=== PATIENT | female | born 1930 | race Caucasian/White ===

== ENCOUNTER 2017-02-13 11:12 | Outpatient (CLI) | payer MEDICARE ==
--- NOTE | 2017-02-13 15:20 | MMO ---
BILATERAL SCREENING MAMMOGRAMS: Comparison is made to the prior exams of 2014, 2015, and 2016. Interpreted with computer-aided detection. There is a heterogeneously dense glandular pattern. Scattered benign-appearing calcifications again noted in both breasts. No evidence of mass or distortion. No interval change seen. Recommend 1-y ear followup. IMPRESSION: BIRADS 2: Benign Finding(s) Routine annual screening mammography (for women over age 40) POS: [facility]
== END 2017-02-13 11:13 | disposition home or self-care (01) ==
LOC: MAMMO 11:12
PROVIDERS: ATTEND Internal Medicine
DX: Z12.31 Encounter for screening mammogram for malignant neoplasm of breast (principal); R92.8 Other abnormal and inconclusive findings on diagnostic imaging of breast
CPT/HCPCS: 77067; G0202

== ENCOUNTER 2017-09-15 01:53 | Observation (INO) | payer MEDICARE ==
[2017-09-15] MEDS ORDERED: Aspirin 81 mg Enteric Coated Tablet ONE (02:28)
[2017-09-15 02:51] LABS: Band 4 % (5-11); Eosinophils 1 % (0-10); Hemoglobin 13.9 g/dL (12.0-16.0); Lymphocytes 27 % (21-51); MDiff Complete? YES; Mean Corpuscular HGB CONC 33.9 g/dL (32.0-36.0); Mean Corpuscular Volume 91.7 fl (81.0-99.0); Mean Platelet Volume 7.7 fL (7.4-10.4); Monocytes 5 % (0-10); Neutrophil 63 % (42-75); PLT Morphology Comment Appears Adequate; Platelet Count 127 thou/uL (130-400); RBC Distribution Width 11.9 % (11.5-14.5); Red Blood Cell (RBC) Count 4.49 mill/uL (4.20-5.40)
[2017-09-15 02:55] LABS: ALT (SGPT) 25 U/L (8-55); AST (SGOT) 29 U/L (5-34); Albumin 4.1 g/dL (3.4-4.8); Alkaline Phosphatase 60 U/L (40-150); Anion Gap 12 mmol/L (10-20); BUN (Urea Nitrogen) 15 mg/dL (9.8-20.1); Bilirubin, Total 0.6 mg/dL (0.2-1.2); CK (CPK) 59 U/L (29-168); Calc. Creatinine Clearance 0 mL/min (70-130); Calcium 9.9 mg/dL (7.8-10.44); Carbon Dioxide 26 mmol/L (23-31); Chloride 101 mmol/L (98-107); Estimated GFR-MDRD 51; Globulin 2.6 g/dL (2.4-3.5); Glucose 139 mg/dL (83-110); Potassium 3.6 mmol/L (3.5-5.1); Protein, Total 6.7 g/dL (6.0-8.3); Sodium 135 mmol/L (136-145)
[2017-09-15 02:59] LABS: CKMB 1.2 ng/mL (0-6.6); Troponin I Less than 0.010 ng/mL (< 0.028)
[2017-09-15] MEDS ORDERED: HYDROcodone/Acetaminophen 5/325 mg Tablet PO PRN (03:54)
[2017-09-15] MEDS ORDERED: Mag-Al 1200 mg/1200 mg/30 ML UDCUP PO PRN (03:54)
[2017-09-15] MEDS ORDERED: Loperamide HCl 2 MG CAP PO PRN (03:54)
[2017-09-15] MEDS ORDERED: Acetaminophen 325 MG TAB PO PRN (03:54)
[2017-09-15] MEDS ORDERED: Milk Of Magnesia 30 ML UDCUP PO PRN (03:54)
[2017-09-15] MEDS ORDERED: Nitroglycerin 0.4 MG TAB (25 Tab Bottle) PO PRN (03:54)
[2017-09-15] MEDS ORDERED: Polyethylene Glycol OPTH DROP 15 ML BOT EA EYE PRN (03:54)
[2017-09-15] MEDS ORDERED: Zolpidem Tartrate 5 MG TAB PO PRN (03:54)
[2017-09-15] MEDS ORDERED: Ondansetron HCl/PF 4 MG/2 ML Vial IVP PRN (03:54)
[2017-09-15] MEDS ORDERED: Ondansetron ODT 4 MG TAB PO PRN (03:54)
[2017-09-15] MEDS ORDERED: Senokot 8.6 MG TAB PO PRN (03:54)
[2017-09-15 04:14] LABS: Bilirubin Negative (Negative); Blood, Urine Trace (Negative); Clarity CLEAR (Clear); Glucose, Urine (Dipstick) Negative (Negative); Leukocyte Negative (Negative); Nitrite Negative (Negative); Protein, Urine (Dipstick) Negative (Neg-Trace); Specific Gravity, Urine 1.006 (1.002-1.036); Urobilinogen 0.2 mg/dL (0.2-1.0); pH, Urine 7.5 (5.0-9.0)
[2017-09-15 04:17] LABS: Bacteria/HPF None Seen HPF (None Seen); Hyaline Casts/LPF 0-3 HYALINE CAST LPF (0-3 Hyaline); RBC/HPF 0-3 HPF (0-3); Squamous Epithelial None Seen HPF (0-3); WBC/HPF None Seen HPF (0-3)
[2017-09-15 04:33] VITALS: BMI 22.1
--- NOTE | 2017-09-15 04:53 | HP ---
PRIMARY CARE PHYSICIAN: Dr. Afshin Clements. REASON FOR ADMISSION: Chest pain, transient atrial fibrillation, acute gastroenteritis and elevated BNP. HISTORY OF PRESENT ILLNESS: An 87-year-old female who has history of hypertension, dyslipidemia, who presented to emergency room with complaint of chest tightness. The patient reports that this mornin g she was having several liquidy diarrhea. She denies any pus or blood. She denies any associated n ausea or vomiting. She denies any abdominal cramps. She denies any fever or chills. She is not zaid e whether she ate anything unusual night before diarrhea started. The patient was exhausted during d aytime. Her last diarrhea was just before coming to the emergency room. Late evening, the patient s tarted having chest tightness, which was on and off, without any radiation, 5/10 in intensity, withou t any association of nausea, vomiting or diaphoresis. She denies any associated palpitation, dizzine ss. She denies any orthopnea, PND or leg swelling. She denies any calf tenderness. In the emergenc y room, the patient had transient atrial fibrillation, which was spontaneously converted without doin g anything. The patient had routine blood test in the emergency room, which showed elevated BNP, but her cardiac enzymes are negative. This patient and patient's son who is present at bedside denies a ny previous cardiac history and denies any cardiology workup. Today, her routine blood tests showed elevated BNP. The patient does not have any previous history o f congestive heart failure. She denies any UTI symptoms. She denies any antibiotic exposure. REVIEW OF SYSTEMS: The following complete review of systems was negative, unless otherwise mentioned in the HPI or below: Constitutional: Weight loss or gain, ability to conduct usual activities. Sk in: Rash, itching. Eyes: Double vision, pain. ENT/Mouth: Nose bleeding, neck stiffness, pain, te nderness. Cardiovascular: Palpitations, dyspnea on exertion, orthopnea. Respiratory: Shortness of breath, wheezing, cough, hemoptysis, fever or night sweats. Gastrointestinal: Poor appetite, abdom inal pain, heartburn, nausea, vomiting, constipation, or diarrhea. Genitourinary: Urgency, frequenc y, dysuria, nocturia. Musculoskeletal: Pain, swelling. Neurologic/Psychiatric: Anxiety, depressio n. Allergy/Immunologic: Skin rash, bleeding tendency. Please see my HPI for pertinent positive and negative. All other review of systems reviewed and negative except as mentioned in the HPI. ALLERGIES: IODINE. CURRENT HOME MEDICATIONS: Toprol-XL 100 mg p.o. daily, amlodipine 5 mg p.o. daily, Lasix 40 mg p.o. daily, Premarin 0.625 mg p.o. daily, Lipitor 20 mg p.o. daily, calcium with vitamin D 1 tablet p.o. d aily, aspirin 81 mg daily, Systane eyedrops at bedtime, Aricept 5 mg p.o. daily, Biotin 5 mg p.o. natalie ly, ibuprofen as needed basis. PAST MEDICAL HISTORY: Hypertension, dyslipidemia, Alzheimer's dementia, osteoarthritis. PAST SURGICAL HISTORY: Right rotator cuff surgery, hysterectomy. PAST PSYCHIATRIC HISTORY: Reviewed and negative. SOCIAL HISTORY: The patient is . She lives alone. She does not have any tobacco, alcohol or illicit drug abuse history. FAMILY HISTORY: No strong family history of premature coronary artery disease, stroke or cancer. EMERGENCY ROOM COURSE: The patient is given aspirin 243 mg, IV fluid 500 mL. PHYSICAL EXAMINATION: VITAL SIGNS: On arrival, blood pressure 130/89, pulse 124 irregular, respiratory rate 18, temperatur e 97.5, saturation 99% on room air, weight 72.5 kilograms. GENERAL: The patient is currently alert, awake, in no acute distress. HEAD: Normocephalic, atraumatic. EYES: Pupils are round and reactive to light. Extraocular muscle intact. ENT: Oropharynx within normal limits. Moist mucous membranes. No oral lesion, no pharyngeal erythe ma, no exudate. NECK: Supple, no thyromegaly, no carotid bruit, no jugular venous distention. LUNGS: Clear to auscultation without any rhonchi or rales. CARDIAC: S1, S2 regular without any significant murmur. ABDOMEN: Soft, bowel sounds present, nontender, nondistended. No organomegaly, no mass, no suprapub ic tenderness. BACK: Unremarkable, no CVA tenderness. EXTREMITIES: Upper extremities: Passive movement of all joints are normal. Lower extremities: No edema. Good peripheral pulsation. SKIN: No skin rash. HEMATOLOGICAL SYSTEM: No lymphadenopathy. PSYCHIATRIC: Normal affect. SIGNIFICANT LABORATORY DATA: EKG showing sinus tachycardia, first degree AV block, ST-T changes. CBC: WBC 3.0, hemoglobin 13.9, platelet 127. CK 59. BMP: Sodium 135, potassium 3.6, chloride 101, carbon dioxide 26, anion gap 12, BUN 15, creatinine 1.03, glucose 139, calcium 9.9. LFT: Protein 6.7, albumin 4.1, AST 29, ALT 25, CK-MB 1.2, troponin I 0.010. BNP 599. Chest x-ray based on my review, no acute cardiopulmonary process. ASSESSMENT AND PLAN: IMPRESSION: 1. Acute diarrhea, suspecting acute viral gastroenteritis. We will rule out infectious etiology wit h stool Clostridium difficile, ova and parasite, Campylobacter antigen, and symptomatic treatment. 2. Chest tightness, rule out acute coronary syndrome. We will do serial cardiac enzymes x3. We amrita l perform pharmacological stress test. We will check lipid profile for risk stratification. 3. Sinus tachycardia/transient atrial fibrillation, converted to sinus rhythm. We will check TSH. We will monitor on telemetry floor. We will continue Toprol-XL 100 mg p.o. daily. 4. Elevated BNP. We will do echocardiography to assess ejection fraction and other structural abnor mality to rule out congestive heart failure. 5. Hypertension. If blood pressure permits, we will continue amlodipine 5 mg p.o. daily, Lasix 40 m g p.o. daily, Toprol-XL 100 mg p.o. daily. 6. Alzheimer's dementia. Continue Aricept 5 mg p.o. daily. 7. Dyslipidemia. Continue Lipitor 20 mg p.o. at bedtime and check lipid profile tomorrow morning. 8. Deep venous thrombosis prophylaxis. Lovenox 40 mg subcutaneously daily. 9. Gastrointestinal prophylaxis, Pepcid 20 mg p.o. b.i.d. 10. Code status: The patient is FULL CODE. The patient's son Mihir is surrogate decision maker. Disposition plan based on above-mentioned investigation result. We will observe her 24 hours and we will consider discharging her tomorrow morning.
[2017-09-15 05:24] LABS: Troponin I 0.046 ng/mL (< 0.028)
[2017-09-15] MEDS ORDERED: Furosemide 40 MG TAB PO SCH (07:30)
[2017-09-15] MEDS: Amlodipine 5 MG TAB PO SCH ×2 (08:13→17:23)
[2017-09-15] MEDS: Aspirin 325 MG TAB PO SCH ×2 (08:13→17:23)
[2017-09-15] MEDS: Calcium Carbonate + Vit D 1 TAB PO SCH (08:13)
[2017-09-15] MEDS: Famotidine 20 MG TAB PO SCH (08:14)
[2017-09-15] MEDS: Enoxaparin Sodium 40 MG/0.4 ML SYRINGE SC SCH (08:14)
[2017-09-15 08:55] LABS: Troponin I 0.014 ng/mL (< 0.028)
[2017-09-15] MEDS ORDERED: Famotidine 20 MG TAB PO SCH (09:00)
--- NOTE | 2017-09-15 10:01 | RAD ---
PORTABLE CHEST: Date: 09/15/17 HISTORY: Chest pain. COMPARISON: 02/26/10 study. FINDINGS: Heart size appears borderline in size. There are atherosclerotic changes of the aorta. The lungs are clear of infiltrates. IMPRESSION: Borderline heart size. No acute findings. POS: [facility]
[2017-09-15] MEDS ORDERED: Regadenoson 0.4 MG/5 ML SYRINGE ONE (10:12)
--- NOTE | 2017-09-15 10:27 | ULT ---
BILATERAL LOWER EXTREMITY VENOUS DUPLEX EXAM: Date: 09/15/17 HISTORY: Leg pain and swelling. FINDINGS: Real-time color Doppler of right and left lower extremity was performed from groin to calf. This incl udes evaluation of the common femoral, superficial and profunda femoral, saphenous, popliteal, and tr ifurcation veins. This shows patent deep venous system. There is normal compressibility and augmentat ion. There is no evidence of deep venous thrombosis. IMPRESSION: No evidence of deep venous thrombosis of either lower extremity. POS: [facility]
--- NOTE | 2017-09-15 13:06 | NM ---
MYOCARDIAL PERFUSION SCAN WITH SPECT IMAGING: HISTORY: Chest pain. History of atrial fibrillation, hypertension, and dyslipidemia. TECHNIQUE/FINDINGS: Examination is performed using 33 mCi 99m-technetium sestamibi on the stress and 10 on the resting im ages. This shows a small apical defect, perhaps minimally improved on the resting images. WALL MOTION: There is symmetric contractility to the ventricle. LEFT VENTRICULAR EJECTION FRACTION: The calculated left ventricular ejection fraction is 80%. Please correlate with echocardiogram. IMPRESSION: Small apical scar with questionable minimal periinfarct ischemic change involving the apex. POS: [facility]
--- NOTE | 2017-09-15 14:57 | PDOC.PN ---
- Subjective Encounter Start Date: 09/15/17 Encounter Start Time: 13:00 Subjective: no chest pain or palp -: wants to go home -: had 2 loose stools from am, says lizbeth has come down and feels good - Objective MAR Reviewed: Yes Vital Signs & Weight: Vital Signs (12 hours) Temp Pulse Resp BP Pulse Ox 09/15/17 12:12 98.0 F 67 16 151/68 H 96 09/15/17 08:13 59 L 09/15/17 07:52 98.2 F 59 L 16 09/15/17 07:32 98.2 F 59 L 16 117/58 L 96 Weight Weight 133 lb 6.4 oz I&O: 09/14/17 09/15/17 09/16/17 06:59 06:59 06:59 Intake Total 0 Output Total 100 Balance -100 Result Diagrams: 09/15/17 02:20 09/15/17 02:20 Phys Exam - Physical Examination HEENT: PERRLA, moist MMs Neck: no JVD, supple Respiratory: no wheezing, no rales Cardiovascular: RRR, no significant murmur Gastrointestinal: soft, non-tender, positive bowel sounds Musculoskeletal: no edema, pulses present Neurological: non-focal, moves all 4 limbs Psychiatric: normal affect, A&O x 3 Dx/Plan (1) Chest pain Code(s): R07.9 - CHEST PAIN, UNSPECIFIED Status: Acute Qualifiers: Chest pain type: unspecified Qualified Code(s): R07.9 - Chest pain, unspecified (2) Gastroenteritis and colitis, viral Code(s): A08.4 - VIRAL INTESTINAL INFECTION, UNSPECIFIED Status: Acute Comment: resolving (3) Afib Code(s): I48.91 - UNSPECIFIED ATRIAL FIBRILLATION Status: Chronic Qualifiers: Atrial fibrillation type: paroxysmal Qualified Code(s): I48.0 - Paroxysmal atrial fibrillation (4) HTN (hypertension) Code(s): I10 - ESSENTIAL (PRIMARY) HYPERTENSION Status: Chronic Qualifiers: Hypertension type: essential hypertension Qualified Code(s): I10 - Essential (primary) hypertension (5) Dyslipidemia Code(s): E78.5 - HYPERLIPIDEMIA, UNSPECIFIED Status: Chronic (6) Demand ischemia of myocardium Code(s): I24.8 - OTHER FORMS OF ACUTE ISCHEMIC HEART DISEASE Status: Acute - Plan stress test shows possible rev ischemia around apex -: echo shows good ef -: diarrhea freq is coming down per patient (2 from am today), still watery -: is wanting to go home -: cardio consultation, continue asp, norvasc, toprol. * . Review of Systems - Medications/Allergies Allergies/Adverse Reactions: Allergies Allergy/AdvReac Type Severity Reaction Status Date / Time iodine Allergy Verified 09/15/17 05:15 Medications: Current Medications Acetaminophen (Tylenol) 650 mg PO Q4H PRN PRN Reason: Headache/Fever or Pain Hydrocodone Bitart/Acetaminophen ([place] 5/325) 1 tab PO Q4H PRN PRN Reason: Moderate Pain (4-6) Al Hydroxide/Mg Hydroxide (Maalox) 30 ml PO Q6H PRN PRN Reason: Heartburn or Indigestion Amlodipine Besylate (Norvasc) 5 mg PO DAILY [facility] Last Admin: 09/15/17 08:13 Dose: Not Given Aspirin (Aspirin) 325 mg PO DAILY [facility] Last Admin: 09/15/17 08:13 Dose: Not Given Atorvastatin Calcium (Lipitor) 20 mg PO HS [facility] Calcium/Vitamin D (Caltrate 600 + Vit D) 1 tab PO QAM-WM [facility] Last Admin: 09/15/17 08:13 Dose: Not Given Donepezil HCl (Aricept) 5 mg PO [facility] Enoxaparin Sodium (Lovenox) 40 mg SC 0900 [facility] Last Admin: 09/15/17 08:14 Dose: Not Given Estrogens Conjugated (Premarin) 0.625 mg PO DAILY [facility] Last Admin: 09/15/17 08:14 Dose: Not Given Famotidine (Pepcid) 20 mg PO DAILY [facility] Last Admin: 09/15/17 08:14 Dose: Not Given Furosemide (Lasix) 40 mg PO DAILY-AC [facility] Last Admin: 09/15/17 08:13 Dose: Not Given Loperamide HCl (Imodium) 2 mg PO PRN PRN PRN Reason: Diarrhea/Loose Stools Magnesium Hydroxide (Milk Of Magnesium) 30 ml PO DAILYPRN PRN PRN Reason: Constipation Metoprolol Succinate (Toprol Xl) 100 mg PO DAILY [facility] Last Admin: 09/15/17 08:14 Dose: Not Given Nitroglycerin (Nitrostat) 0.4 mg PO Q5MIN PRN PRN Reason: Chest Pain Ondansetron HCl (Zofran Odt) 4 mg PO Q6H PRN PRN Reason: Nausea/Vomiting Ondansetron HCl (Zofran) 4 mg IVP Q6H PRN PRN Reason: Nausea/Vomiting Propylene Glycol (Systane Opth Drop 15ml Bot) 2 drop EA EYE Q4H PRN PRN Reason: Dry Eyes Senna (Senokot) 2 tab PO HSPRN PRN PRN Reason: Constipation Sodium Chloride (Flush - Normal Saline) 10 ml IVF Q12HR [facility] Last Admin: 09/15/17 08:14 Dose: Not Given Sodium Chloride (Flush - Normal Saline) 10 ml IVF PRN PRN PRN Reason: Saline Flush Zolpidem Tartrate (Ambien) 5 mg PO HSPRN PRN PRN Reason: Insomnia
[2017-09-15] MEDS ORDERED: Amlodipine 5 MG TAB PO SCH (17:30)
[2017-09-15] MEDS ORDERED: Aspirin 325 MG TAB PO SCH (17:30)
[2017-09-15] MEDS ORDERED: Atorvastatin Calcium 20 MG TAB PO SCH (21:00)
[2017-09-15] MEDS ORDERED: Donepezil HCl 5 MG TAB PO SCH (21:00)
--- NOTE | 2017-09-16 03:33 | CON ---
DATE OF CONSULTATION: 09/15/2017 PRIMARY CARE PHYSICIAN: Afshin Clements M.D. PRIMARY COAT ROOM ATTENDANT: Roz Mccarthy M.D. REFERRING PHYSICIAN: Redd Sewell M.D. REASON FOR CARDIOLOGY CONSULTATION: Abnormal stress test. HISTORY OF PRESENT ILLNESS: Ms. Crowell is a very pleasant 87-year-old female with a si gnificant history of hypertension, dyslipidemia. The patient presents to the emergency department fo r racing of the heart rates with chest tightness. The patient reports that she had watery diarrhea f or at least a few weeks and the last couple days the patient's diarrhea is getting worse and she had to go to bathroom at least 6-8 times a day the day before yesterday and yesterday after she used bath room in the morning she felt racing heart rate accompanied with chest tightness. She tried to rest; however, she later tried to call her son for her symptoms. When she got up, after called the son, sh meet felt very weak and shaky and she fell. At that time, she reports that she did not lose conscious a nd she knew she is falling. When the patient's son arrived her home, he took the patient to the [facility] department for further evaluation and treatment. At that time, when she was transferred from [facility] to the son's car, she could walk by herself to her son's car. She denies any fever or chill or a ny kind of infection like symptoms during the last few weeks. She has chest tightness at mid sternal area. However, once the patient's heart rates were down, the patient's chest tightness resolved. I n the emergency department, the patient was found to have transient atrial fibrillation, which was sp ontaneously converted back to sinus rhythm without any treatment. Family member has noticed the gilberto ent lost 20 pounds without any treatment over the 6 months. She has chronic constipation and intermi ttent swelling in the right lower extremity. During the initial Cardiology consult assessment, the p atient denied any chest pain or discomfort, palpitation or fluttering in her chest, numbness to the l eft upper extremity, dizziness, lightheadedness, nausea or vomiting or any other cardiac complaints. The patient's BNP was elevated at the emergency department. Her troponin and cardiac enzymes are neg ative. UA shows no evidence of UTI. She followed up with Dr. Weinberg until 2010 for varicose vein in her bilateral lower extremities. She has not seen any healthcare representative. She never had a cardiac wor kup before. She has been active without any cardiac complaints. PAST MEDICAL HISTORY: 1. Hypertension. 2. Dyslipidemia. 3. Very forgetful, for which she saw Dr. Culp a couple of months ago and she was prescribed low dose of Aricept; however, according to family member, she is very sharp. She could answer all questions during this assessment. 4. Osteoarthritis. PAST SURGICAL HISTORY: 1. Right rotator cuff surgery in 1998. 2. Total hysterectomy. FAMILY HISTORY: The patient's mother has a history of hypertension. She has 2 sons, one son has a h istory of hypertension and hypercholesterolemia and another son has a history of stent placement at a ge of 60. SOCIAL HISTORY: The patient is . She lives alone, but one of her sons living in the same town. She denies any tobacco, ETOH or illicit drug abuse. She drinks decaf tea and she is very active at home and she socializes with friends every week. She had 2 sons who are alive and live well. ALLERGIES: She is allergic to IODINE. HOME MEDICATIONS: Advil 400 mg every 6 hours as needed; Biotin 5 mg once a day, it is supposedly at night; aspirin 81 mg once a day; Lubricant eye drops 1 drop each eye as needed; estrogens 0.625 mg 1 tablet once a day; calcium with vitamin D 1 tablet once a day; metoprolol succinate 100 mg once a day ; Lasix 40 mg once a day; Aricept 5 mg once a day at night; Lipitor 20 mg once a day; and amlodipine 5 mg once a day. REVIEW OF SYSTEMS: The following complete review of systems was negative, unless otherwise mentioned in the HPI or below: Constitutional: Weight loss or gain, ability to conduct usual activities. Sk in: Rash, itching. Eyes: Double vision, pain. ENT: Nose bleeding, neck stiffness, pain, tenderne ss, or mass in thyroid or other areas. Cardiovascular: Prior to this episode, the patient denies pa lpitation, dyspnea on exertion, orthopnea, nocturnal dyspnea, edema, cyanosis, heart murmur, claudica tion. Positive for varicose vein and edema on the right lower extremity. Respiratory: Shortness of breath, wheezing, stridor, cough, hemoptysis. Gastrointestinal: Poor appetite, dysphagia, indigest ion, abdominal pain, diarrhea prior to this episode, but she has history of chronic constipation. Ge nitourinary: Urgency, frequency, dysuria, nocturia, hematuria, polyuria, oliguria, unusual color of urine. Musculoskeletal: Pain in right shoulder due to the history of rotator cuff surgery. Other t garces that, the patient denies any abnormalities. Neurologic: Seizure, convulsion, paralysis, tremor, incoordination. Psychiatric: Emotional problem, anxiety, depression. PHYSICAL EXAMINATION: VITAL SIGNS: Blood pressure 176/72, heart rate 59-65 with sinus rhythm, respiratory rate 16, tempera ture 98.3, O2 sat 96% on room air. GENERAL: Well developed, well nourished, without any acute distress. HEAD: Normocephalic, atraumatic. EYES: Extraocular muscle movement intact. ENT: Oral and nasal mucosa are moist without lesion. NECK: No JVD. Neck is supple and normal range of motion. LUNGS: Clear to auscultation bilaterally. No wheezing, rales, or rhonchi noted. CARDIOVASCULAR: Regular rate and rhythm. Normal S1, S2. There are no S3 or S4. No significant mur murs, hives, thrill bruit, or rub noted. There is 2+ pulses in the bilateral dorsal pedis, popliteal . Carotid pulses are present without bruit or thrill. No edema in the bilateral lower extremities a t this moment. ABDOMEN: Soft and nontender or mass to palpate. Bowel sounds are present. MUSCULOSKELETAL: The patient able to move all extremities. SKIN: Warm and dry. No skin rash, lesion or bruise noted. NEUROLOGIC: Alert, oriented x4, awake. Normal affect. Nonfocal. PSYCHIATRIC: Mood and affect are normal. IMAGING: EKG: A 12-lead EKG in the emergency department shows sinus tachycardia with heart rate of 126 and another EKG shows sinus rhythm. After 30 minutes, the EKG shows sinus rhythm with heart rate of [address] segment change or T wave inversion in lead I and the patient is having sinus siomara and sinus rhythm at 59-60. The patient's chest x-ray shows borderline heart size, no acute finding. V/Q scan was done due to elevated D-dimer at 0.8, showing no evidence of DVT. The patient's stress test shows a small apical deficit and small apical scar with questionable minimal ischemic change inv olving the apex with EF of 80%. The patient's echocardiogram today shows ejection fraction 60% to 65 %, normal bilateral atrium size, mild mitral valve regurgitation, and trace tricuspid regurgitation. ASSESSMENT AND PLAN: 1. Abnormal stress test result. The stress test today shows small apical scar with questionable min imal ischemic change involving the apex. The patient's troponin level is within normal range. EKG c hange with any ST segment change or T-wave depression. The patient's echocardiogram was within the n ormal range and also the patient is asymptomatic. I like to discuss with Dr. Mccarthy about the patient further cardiac workup due to her age, although the patient is very active and the patient's blood co unt and the kidney function were within normal range. The patient is on beta rick and aspirin 325 , also she is on Lovenox once a day and Lipitor. 2. Hypertension. The patient's blood pressure has been elevated after the patient had a stress test this afternoon. It seems that she have not had any blood pressure medication. She is going to have amiodarone 5 mg onetime dose and aspirin 325 onetime dose at this time, but I like to decrease metop rolol succinate, which is 100 mg once a day to half tablet due to the patient's post heart rate and w e may like to start some MARCUS inhibitor for blood pressure management. 3. Hyperlipidemia. The patient is on statin. 4. Questionable Alzheimer's disease, although the patient is taking low dose of Aricept, she is very sharp and she is really active. She is living by herself without any difficulties. We would like t o continue to monitor her symptoms. Thank you very much for allowing the Cardiology Service to participate in care of this patient. We w ill follow along with the patient's care team and make further evaluation as appropriate.
[2017-09-16 04:49] LABS: #Basophils 0.1 thou/uL (0.0-0.2); #Eosinphils 0.2 thou/uL (0.0-0.7); #Monocytes 0.5 thou/uL (0.11-0.59); #Neutrophils 1.6 thou/uL (1.40-6.50); %Basophils 1.6 % (0.0-1.0); %Eosinophils 6.3 % (0.0-10.0); %Lymphocytes 28.5 % (21.0-51.0); %Monocytes 14.7 % (0.0-10.0); %Neutrophils 48.9 % (42.0-75.0); Hemoglobin 12.8 g/dL (12.0-16.0); Mean Corpuscular HGB CONC 32.8 g/dL (32.0-36.0); Mean Corpuscular Hemoglobin 30.4 pg (27.0-31.0); Mean Corpuscular Volume 92.7 fl (81.0-99.0); Mean Platelet Volume 7.7 fL (7.4-10.4); Platelet Count 131 thou/uL (130-400); RBC Distribution Width 11.9 % (11.5-14.5); Red Blood Cell (RBC) Count 4.22 mill/uL (4.20-5.40); White Blood Cell (WBC) Count 3.3 thou/uL (4.8-10.8)
[2017-09-16 05:06] LABS: Anion Gap 8 mmol/L (10-20); BUN (Urea Nitrogen) 14 mg/dL (9.8-20.1); Calc. Creatinine Clearance 48 mL/min (70-130); Calcium 9.2 mg/dL (7.8-10.44); Carbon Dioxide 29 mmol/L (23-31); Cardiac Risk 3.1 (Less than 4.5); Chloride 106 mmol/L (98-107); Cholesterol 123 mg/dl (< 200 Desired); Estimated GFR-MDRD 66; Glucose 97 mg/dL (83-110); HDL Cholesterol 40 mg/dL (>60 Neg Risk); LDL Cholesterol, Calculated 69 mg/dL; Potassium 3.6 mmol/L (3.5-5.1); Sodium 139 mmol/L (136-145); Triglycerides 71 mg/dL (Less than 150)
--- NOTE | 2017-09-16 08:17 | ADD-CON ---
ADDENDUM DATE OF ADMISSION: 09/15/2017 DATE OF CONSULTATION: 09/15/2017 INDICATION FOR CONSULTATION: An 87-year-old female with abnormal stress test and also slight chest d iscomfort. HISTORY OF PRESENT ILLNESS: Please note refer the notes already dictated by the nurse practitioner Aldo núñez. This lady is 87 years old, who has had diarrhea on and off for the last 3 weeks, she said she had completely for one week. She was off a week and then on to get a week. She became very dizzy an d very fatigued and weak and then called her son to tell that she was not feeling very well and also had some chest discomfort. Her heart was beating somewhat rapid. She presented to the [facility] and was found to have a rapid heart rate, which appeared to be either SVT or sinus tachycardia, but she had a heart rate about 126 beats per minute, actually a little bit faster that at times, that up to 130-140 and then she self-converted back to sinus rhythm while in the emergency room. During the rapid heart rate, she did have some nonspecific EKG changes. Her cardiac enzymes are negative for m yocardial infarction. She had 1 enzyme that was slightly elevated at 0.046, but there was no indicat ion of myocardial infarction. Her BNP was 599. She did undergo a stress test, which showed a very s mall apical what appeared to be a scar with a question of saul-infarct ischemia; however, on review o f the films by myself, it appears that she actually had improvement in the overall scared area at the stress compared to rest, and she has a normal wall motion at that area and has ejection fraction ove r 80% with stress testing and echocardiogram also showed a normal left ventricular systolic function with only mild mitral and tricuspid valve regurgitation. She has had no further chest pain. She has had no history of coronary artery disease in the past and she continues to have some diarrhea, which is indeterminate etiology at this time, she has actually had several stools since being in the [facility] here, she does not appear to be significantly dehydrated. Her laboratory data shows a BUN of 15 with a creatinine 1.03, blood sugar was elevated at 139, sodium was 135, potassium 3.6. At this time , she denies any chest pain or shortness of breath and is doing quite well, otherwise. For her past medical history, social history, family history, review of systems, medication listing a nd allergies, please refer to notes dictated by the nurse practitioner. PHYSICAL EXAMINATION: GENERAL: Reveals a very pleasant, elderly female who is in no acute distress at this time. VITAL SIGNS: Blood pressure 152/71, heart rate is 66 and regular shows a sinus rhythm, respiratory r ate is 18, she is afebrile. HEENT: Shows the head to be normocephalic, atraumatic. Carotid pulses are present. There were no b ruits. There is no JVD. The thyroid is not enlarged. Oral mucosa was pink and moist. CHEST: Clear to auscultation. There are no rales, rhonchi or wheezing noted. CARDIOVASCULAR: Reveals a regular rate and rhythm with a normal S1 and S2. There is no S3, S4. The re were no significant murmurs, heaves, thrills, bruits or rubs. ABDOMEN: Soft and slightly tender, but no significant masses were noted. Femoral pulses are present . EXTREMITIES: Show no clubbing, cyanosis or edema. Pedal pulses are present. NEUROLOGIC: She appears to be fully intact. She is very alert for someone who is 87 years old. LABORATORY DATA: As stated above. There is no indication she has suffered a myocardial infarction. The stress testing shows a very small area at the apex of possible scar, but I suspect this is artif act. Her echocardiogram was also within normal limits. She has undergone a lower extremity Doppler evaluation shows no evidence of DVT. Her chest x-ray is also unremarkable. At this time, I believe, from a cardiac standpoint, she is stable. I did not believe the cardiac cat heterization is warranted in this lady at 87 years old at this time, with only minimal symptoms and t his certainly would not be unusual in someone with SVT at her age and some mild dehydration associate d with her diarrhea. I would continue to monitor her at this time, it is more perhaps further workup can be done as an outpatient in the future should she develop any further symptoms. Hypertension. We will need to adjust her medications in order to control the blood pressure. Diarrhea. She may need to have a Gastroenterology consultation to determine the etiology of diarrhea . Thus far the stool cultures have been negative. I will be more than happy to continue to follow the patient with you, but at this time I believe, fro m a cardiac standpoint, she is stable and no further cardiac workup is indicated at this time.
[2017-09-16] MEDS: Calcium Carbonate + Vit D 1 TAB PO SCH (08:25)
[2017-09-16] MEDS: Amlodipine 5 MG TAB PO SCH (08:25)
[2017-09-16] MEDS: Famotidine 20 MG TAB PO SCH (08:26)
[2017-09-16] MEDS: Aspirin 325 MG TAB PO SCH (08:26)
[2017-09-16] MEDS: Enoxaparin Sodium 40 MG/0.4 ML SYRINGE SC SCH (09:42)
--- NOTE | 2017-09-16 11:22 | PDOC.CTH ---
Cardiology Progress Note - Subjective The pt seen and examined. No cardiac complaints. No overnight events. - Objective Vital Signs Temp Pulse Resp BP BP Pulse Ox 09/16/17 10:03 65 09/16/17 09:02 52 L 09/16/17 08:22 144/60 H 09/16/17 08:00 97.3 F L 69 18 09/16/17 07:40 97.3 F L 69 18 193/83 H 95 09/16/17 04:00 98.1 F 61 20 121/60 95 09/16/17 01:12 93 L 09/15/17 23:30 98.4 F 65 18 121/57 L 91 L Weight 133 lb 6.4 oz 09/15/17 09/16/17 09/17/17 06:59 06:59 06:59 Intake Total 0 1090 Output Total 100 Balance -100 1090 - Physical Examination General/Neuro: alert & oriented x3 Neck: no JVD present Lungs: CTA Heart: RRR Abdomen: soft Extremities: other: (No edema) - Telemetry Telemetry Rhythm: SR 60s - Labs Result Diagrams: 09/16/17 04:13 09/16/17 04:13 Troponin/CKMB CK-MB (CK-2) 1.2 ng/mL (0-6.6) 09/15/17 02:20 Troponin I 0.014 ng/mL (< 0.028) 09/15/17 08:16 - Assessment/Plan 1. Abnormal Stress test result - very mild scar in apex. No further cardiac workup at this moment. On Bblocker, ASA, and Statin. Start Lisinopril 10mg daily. 2. Chronic diarrhea - No diarrhea since yesterday afternoon. She thinks she started having diarrhea since she started taking Biotin. 3. Paroxysmal Afib - Remains in SR. Cont. to monitor on tele 4. HTN - Start Lisinopril 10mg daily from today. 5. Hyperlipidemia - on Statin MAR reviewed * From Cardiac standpoint, the pt is stable to d/c home. The pt will f/u with Dr Mccarthy' office within 2-4 wks. Review of Systems - Review of Systems Constitutional: reports: no symptoms reported EENTM: reports: no symptoms reported Respiratory: reports: no symptoms reported Cardiac (ROS): reports: no symptoms reported ABD/GI: reports: no symptoms reported : reports: no symptoms reported Musculoskeletal: reports: no symptoms reported
[2017-09-16] MEDS ORDERED: Lisinopril 10 MG TAB PO SCH ×2 (11:30)
[2017-09-16 11:51] VITALS: BP 149/70; TEMP 98
--- NOTE | 2017-09-16 13:43 | DIS ---
DATE OF ADMISSION: 09/15/2017 DATE OF DISCHARGE: 09/16/2017 PRIMARY CARE PHYSICIAN: Afshin Clements M.D. DISCHARGE DISPOSITION: Home. PRIMARY DISCHARGE DIAGNOSES: Chest pain, ruled out acute coronary syndrome; demand ischemia of myoca rdium; elevated BNP; acute viral gastroenteritis. SECONDARY DISCHARGE DIAGNOSES: Hypertension, dyslipidemia, Alzheimer's dementia, atrial fibrillation . PRIMARY PROCEDURE/OPERATION: None. RADIOLOGICAL INVESTIGATION: Chest x-ray normal. Stress test reported as small apical scar with saul -infarct ischemic changes. Echocardiography showed normal EF. Ultrasound was negative for any DVT. SIGNIFICANT LABS: WBC 3.3, hemoglobin 12.8, platelet 131. D-dimer 0.80. Sodium 139, potassium 3.6, BUN 14, creatinine 0.82, calcium 9.2, troponin 0.014, BNP 599.7, LDL 69. TSH 2.64. Urinalysis norm al. Stool for infection workup negative. DISCHARGE MEDICATIONS: Norvasc 5 mg p.o. daily, aspirin 81 mg p.o. daily, Lipitor 20 mg p.o. daily, calcium with vitamin D 1 tablet p.o. daily, Aricept 5 mg p.o. at bedtime, Premarin 0.625 mg p.o. haris y, Lasix 40 mg p.o. daily, Toprol-XL 100 mg p.o. daily, Systane eyedrops as needed. CONTRAINDICATIONS: None. CODE STATUS: FULL CODE. INPATIENT CONSULTANTS: Dr. Mccarthy was consulted for abnormal stress test and she recommended that no n eed of doing any investigation at this point. TEST RESULTS PENDING ON DISCHARGE: None. ALLERGIES: IODINE. DISCHARGE PLAN: Post hospital, the patient will follow up with Dr. Mccarthy in 2 weeks. The patient amrita l follow with primary care physician. The patient will have outpatient GI followup for diarrhea if d oes not improve, then she will need outpatient colonoscopy. DISCHARGE PLAN: Post hospital, the patient will follow up with primary care physician. HOSPITAL COURSE: An 87-year-old female with above-mentioned medical problem who was admitted by me y . Please see my HPI for further detail. The patient had acute diarrhea which we presumed vi ral. We did stool for infection workup that came back negative and subsequently after admission, the patient did not have any diarrhea and her diarrhea resolved. Patient was attributing diarrhea to Biotin that is why antibiotic was discontinued. We advised this patient to follow up with GI as an outpatient basis. In case if her diarrhea does not improve and if she gets recurrent diarrhea, then she will need outpatient colonoscopy. The patient agreed with nolan t plan. While in hospital, Dr. Mccarthy recommended GI consultation, but the patient does not want to wa it for them and rather she will follow up with them as an outpatient basis. After diarrhea, the patient was having chest pain and that is why we admitted this patient in [facility]. We did serial cardiac enzyme one time only. Troponin was indeterminant range. Stress test was o rdered, which showed a periapical scar ischemia that is why Dr. Mccarthy was consulted, but she was not t hinking that at this point she needs any cardiac catheterization rather she wanted to follow up with her as an outpatient basis. The patient remained completely asymptomatic. Her telemetry remained unremarkable. The patient does not have any symptoms at this point and she is wanted to go home. The patient is seen and examined at bedside today. Plan of care discussed with the patient and famil y member at bedside. We are not making any necessary changes in her home medication. All review of system reviewed with her and negative.
[2017-09-17] MEDS ORDERED: Lisinopril 10 MG TAB PO SCH (09:00)
== END 2017-09-16 13:25 | disposition home or self-care (01) ==
LOC: ERS 01:53 → 2SW 04:25
PROVIDERS: ADMIT Internal Medicine; ATTEND Internal Medicine
DX: R07.89 Other chest pain (principal); R94.39 Abnormal result of other cardiovascular function study; I48.0 Paroxysmal atrial fibrillation; I10 Essential (primary) hypertension; I24.8 Other forms of acute ischemic heart disease; E78.5 Hyperlipidemia, unspecified; K52.9 Noninfective gastroenteritis and colitis, unspecified; A08.4 Viral intestinal infection, unspecified; G30.9 Alzheimer's disease, unspecified; M19.90 Unspecified osteoarthritis, unspecified site; Z91.041 Radiographic dye allergy status; Z79.82 Long term (current) use of aspirin; Z79.899 Other long term (current) drug therapy
CPT/HCPCS: 71045; 78452; 80048; 80053; 80061; 81001; 82550; 82553; 83880; 84443; 84484 ×2; 85025 ×2; 85379; 87045; 87046; 87324; 87328; 87329; 87449 ×2; 87899 ×2; 93005; 93017; 93306; 93970; 94760 ×2; 99285; A9500; G0378; 36415; 87081; A4216; J2785

== ENCOUNTER 2018-09-01 05:19 | Outpatient (CLI) | payer MEDICARE ==
[2018-09-01 12:51] LABS: #Eosinphils 0.2 thou/uL (0.0-0.7); #Lymphocytes 1.4 thou/uL (1.20-3.40); #Monocytes 0.4 thou/uL (0.11-0.59); #Neutrophils 2.6 thou/uL (1.40-6.50); %Eosinophils 4.8 % (0.0-10.0); %Lymphocytes 29.5 % (21.0-51.0); %Monocytes 9.3 % (0.0-10.0); %Neutrophils 55.4 % (42.0-75.0); Hemoglobin 13.7 g/dL (12.0-16.0); Mean Corpuscular HGB CONC 33.9 g/dL (32.0-36.0); Mean Corpuscular Hemoglobin 31.1 pg (27.0-31.0); Mean Corpuscular Volume 91.6 fL (78.0-98.0); Mean Platelet Volume 8.1 fL (7.4-10.4); Platelet Count 156 thou/uL (130-400); RBC Distribution Width 11.9 % (11.5-14.5); Red Blood Cell (RBC) Count 4.41 mill/uL (4.20-5.40); White Blood Cell (WBC) Count 4.7 thou/uL (4.8-10.8)
[2018-09-01 13:19] LABS: ALT (SGPT) 20 U/L (8-55); AST (SGOT) 26 U/L (5-34); Albumin 4.3 g/dL (3.4-4.8); Alkaline Phosphatase 56 U/L (40-150); Anion Gap 11 mmol/L (10-20); BUN (Urea Nitrogen) 16 mg/dL (9.8-20.1); Bilirubin, Total 0.7 mg/dL (0.2-1.2); Calc. Creatinine Clearance 0 mL/min (70-130); Calcium 10.4 mg/dL (7.8-10.44); Carbon Dioxide 33 mmol/L (23-31); Chloride 99 mmol/L (98-107); Estimated GFR-MDRD 47; Globulin 2.9 g/dL (2.4-3.5); Glucose 68 mg/dL (83-110); Potassium 3.4 mmol/L (3.5-5.1); Protein, Total 7.2 g/dL (6.0-8.3); Sodium 140 mmol/L (136-145)
== END 2018-09-01 05:20 | disposition home or self-care (01) ==
LOC: LABBT 05:19
PROVIDERS: ATTEND Surgery
DX: Z01.818 Encounter for other preprocedural examination (principal); D17.9 Benign lipomatous neoplasm, unspecified
CPT/HCPCS: 80053; 85025; 93005; 93010

== ENCOUNTER 2018-09-04 09:28 | Day surgery (SDC) | payer MEDICARE ==
[2018-09-01 11:28] VITALS: BMI 23.3
[2018-09-04] MEDS ORDERED: Fentanyl 100 MCG/2 ML VIAL ONE (09:39)
[2018-09-04] MEDS ORDERED: Famotidine/PF 20 mg/2ml Vial ONE (10:12)
[2018-09-04] MEDS ORDERED: Bupivacaine/Epinephrine 0.25% 30 ML VIAL ONE (10:29)
--- NOTE | 2018-09-04 14:16 | OP ---
DATE OF PROCEDURE: 09/04/2018 PREOPERATIVE DIAGNOSIS: Left biceps intramuscular lipoma. PROCEDURE PERFORMED: Excisional biopsy. INDICATIONS: An 88-year-old female with an enlarging soft tissue mass of the left biceps. MRI suggested to be an intramuscular lipoma. FINDINGS: 8 x 6 x 4 cm multilobular intramuscular lipoma of the left biceps muscle. DESCRIPTION OF PROCEDURE: After informed consent was obtained, the patient was taken to the operating room and given general mask anesthesia. She was placed in the supine position, and the arm was prepped and draped in usual fashion. Local anesthesia infiltrated subcutaneously and deep. A radial incision was performed over the mass. Subcu divided sharply. The muscle fascia was incised sharply utilizing electrocautery. The lipoma was exposed. Using careful digital dissection, it was able to be shelled out fairly well laterally and medially. Distally, it was more attached. Retraction achieved and was able to free this up. There were a few little pockets that were able to be shelled out digitally. Then, it was removed and sent to pathology for further analysis. Hemostasis achieved. The muscle fascia was closed with a running 2-0 Vicryl. Subcu reapproximated with interrupted 3-0 Vicryl and the skin closed with a running subcuticular 4-0 Rapide. Dermabond applied. The patient tolerated the procedure well, transferred to Recovery in good condition. Sponge and needle count verified correct x2. Job ID: [id number]
[2018-09-04] MEDS ORDERED: ePHEDrine 50 MG/ML VIAL ONE (14:57)
[2018-09-04] MEDS ORDERED: PROPOFOL 200 MG/20 ML VIAL ONE (14:57)
[2018-09-04] MEDS ORDERED: Dexamethasone 20 MG/5 ML VIAL ONE (14:57)
[2018-09-04] MEDS ORDERED: Ondansetron PF 4 MG/2 ML Vial ONE (14:57)
[2018-09-04] MEDS ORDERED: Lidocaine 1% PF 5 ML VIAL ONE (14:57)
[2018-09-04] MEDS ORDERED: Ketorolac Tromethamine 30 MG/ML VIAL ONE (14:57)
[2018-09-04] MEDS ORDERED: Glycopyrrolate 0.2 MG/ML 5 ML SYRINGE ONE (14:57)
== END 2018-09-04 13:20 | disposition home or self-care (01) ==
LOC: SDC 09:28
PROVIDERS: ATTEND Surgery
PROC: 0KB80ZZ Excision of Left Upper Arm Muscle, Open Approach (ICD-10-PCS; principal; 2018-09-04)
DX: D17.79 Benign lipomatous neoplasm of other sites (principal); E78.00 Pure hypercholesterolemia, unspecified; I10 Essential (primary) hypertension; Z79.82 Long term (current) use of aspirin; Z79.899 Other long term (current) drug therapy; Z91.041 Radiographic dye allergy status; Z91.048 Other nonmedicinal substance allergy status
CPT/HCPCS: 88304; J0131; J0690; J1100; J1885; J2001; J2405; J2704; J3010; J3490; S0028

== ENCOUNTER 2020-08-04 14:09 | Observation (INO) | payer MEDICARE ==
[2020-08-04 16:10] LABS: ALT (SGPT) 23 U/L (8-55); AST (SGOT) 27 U/L (5-34); Albumin 3.9 g/dL (3.4-4.8); Alkaline Phosphatase 62 U/L (40-110); Anion Gap 11 mmol/L (10-20); BUN (Urea Nitrogen) 17 mg/dL (9.8-20.1); Bilirubin, Total 0.5 mg/dL (0.2-1.2); Calc. Creatinine Clearance 0 mL/min (70-130); Calcium 9.2 mg/dL (7.8-10.44); Carbon Dioxide 32 mmol/L (23-31); Chloride 99 mmol/L (98-107); Globulin 2.8 g/dL (2.4-3.5); Glucose 151 mg/dL (83-110); Potassium 3.8 mmol/L (3.5-5.1); Protein, Total 6.7 g/dL (5.8-8.1); Sodium 138 mmol/L (136-145)
[2020-08-04 16:12] LABS: #Eosinphils 0.1 thou/uL (0.0-0.7); #Lymphocytes 0.7 thou/uL (1.20-3.40); #Monocytes 0.4 thou/uL (0.11-0.59); #Neutrophils 3.5 thou/uL (1.40-6.50); %Basophils 0.5 % (0.0-1.0); %Eosinophils 2.3 % (0.0-10.0); %Lymphocytes 15.4 % (21.0-51.0); %Monocytes 7.4 % (0.0-10.0); %Neutrophils 74.4 % (42.0-75.0); Hemoglobin 12.4 g/dL (12.0-16.0); Mean Corpuscular HGB CONC 33.6 g/dL (32.0-36.0); Mean Corpuscular Hemoglobin 30.9 pg (27.0-31.0); Mean Corpuscular Volume 91.9 fL (78.0-98.0); Platelet Count 118 thou/uL (130-400); Platelet Morphology Comment Appears Decreased; RBC Distribution Width 12.5 % (11.5-14.5); Red Blood Cell (RBC) Count 4.01 mill/uL (4.20-5.40); White Blood Cell (WBC) Count 4.7 thou/uL (4.8-10.8)
[2020-08-04] MEDS ORDERED: Acetaminophen 325 MG TAB PO PRN (19:07)
[2020-08-04] MEDS ORDERED: Acetaminophen 650 MG Suppository PR PRN (19:07)
[2020-08-04] MEDS ORDERED: Aspirin Chewable 81 MG TAB ONE (19:16)
[2020-08-04] MEDS ORDERED: Sodium Chloride 0.9% 1,000 ML IV SCH (20:15)
[2020-08-04] MEDS ORDERED: Atorvastatin Calcium 40 MG TAB PO SCH (21:00)
[2020-08-04 21:19] VITALS: BMI 21.8
[2020-08-04 21:56] LABS: Bacteria/HPF None Seen HPF (None Seen); Bilirubin Negative (Negative); Blood, Urine Negative (Negative); Clarity Clear (Clear); Glucose, Urine (Dipstick) Normal (Negative); Ketone, Urine Negative (Negative); Leukocyte Negative Leu/uL (Negative); Nitrite Negative (Negative); Protein, Urine (Dipstick) Negative (Neg-Trace); RBC/HPF 0-3 HPF (0-3); Specific Gravity, Urine 1.004 (1.002-1.036); Squamous Epithelial 0-3 HPF (0-3); Urobilinogen Normal mg/dL (Less than 2); WBC/HPF 0-3 HPF (0-3)
[2020-08-04 21:57] LABS: Urine Culture Reflex No No
[2020-08-05] MEDS ORDERED: Melatonin 3 MG TAB PO PRN (00:04)
[2020-08-05 04:36] LABS: SARS-CoV-2 PCR by NAA Not Detected (NotDetected)
[2020-08-05 05:25] LABS: #Eosinphils 0.2 thou/uL (0.0-0.7); #Lymphocytes 1.2 thou/uL (1.20-3.40); #Monocytes 0.4 thou/uL (0.11-0.59); #Neutrophils 1.8 thou/uL (1.40-6.50); %Basophils 0.7 % (0.0-1.0); %Eosinophils 4.4 % (0.0-10.0); %Lymphocytes 33.7 % (21.0-51.0); %Monocytes 10.2 % (0.0-10.0); Hemoglobin 11.4 g/dL (12.0-16.0); Mean Corpuscular Hemoglobin 30.5 pg (27.0-31.0); Mean Corpuscular Volume 92.5 fL (78.0-98.0); Mean Platelet Volume 8.3 fL (7.4-10.4); Platelet Count 114 thou/uL (130-400); RBC Distribution Width 12.6 % (11.5-14.5); Red Blood Cell (RBC) Count 3.73 mill/uL (4.20-5.40); White Blood Cell (WBC) Count 3.6 thou/uL (4.8-10.8)
[2020-08-05 05:36] LABS: Anion Gap 9 mmol/L (10-20); BUN (Urea Nitrogen) 14 mg/dL (9.8-20.1); Calc. Creatinine Clearance 40 mL/min (70-130); Carbon Dioxide 32 mmol/L (23-31); Cardiac Risk 2.6 (Less than 4.5); Chloride 105 mmol/L (98-107); Cholesterol 114 mg/dl (< 200 Desired); Glucose 88 mg/dL (83-110); HDL Cholesterol 44 mg/dL (>60 Neg Risk); LDL Cholesterol, Calculated 50 mg/dL; Potassium 3.6 mmol/L (3.5-5.1); Sodium 142 mmol/L (136-145); Triglycerides 98 mg/dL (Less than 150)
[2020-08-05] MEDS ORDERED: Aspirin 325 mg Enteric Coated Tablet PO SCH (09:00)
[2020-08-05 15:45] VITALS: TEMP 97.6
[2020-08-05 17:08] VITALS: BP 129/73
[2020-08-05] MEDS ORDERED: Enoxaparin Sodium 60 MG/0.6 ML SYRINGE SC SCH (21:00)
[2020-08-06] MEDS ORDERED: Calcium Carbonate 600 MG + Vit D TAB PO SCH (09:00)
[2020-08-06] MEDS ORDERED: Aspirin 81 mg Enteric Coated Tablet PO SCH (09:00)
[2020-08-06] MEDS ORDERED: Non-Formulary Item 1 EACH (Metoprolol Succinate [Metoprolol Succinate] 200 MG Tab.Er.24h) PO SCH (09:00)
== END 2020-08-05 17:54 | disposition home or self-care (01) ==
LOC: ERS 14:09 → 2SE 18:14
PROVIDERS: ADMIT Internal Medicine; ATTEND Internal Medicine
DX: R42 Dizziness and giddiness (principal); E03.9 Hypothyroidism, unspecified; I48.0 Paroxysmal atrial fibrillation; G30.9 Alzheimer's disease, unspecified; F02.80 Dementia in other diseases classified elsewhere, unspecified severity, without behavioral disturbance, psychotic disturbance, mood disturbance, and anxiety; E78.5 Hyperlipidemia, unspecified; I10 Essential (primary) hypertension; M19.90 Unspecified osteoarthritis, unspecified site; I08.1 Rheumatic disorders of both mitral and tricuspid valves; Z79.82 Long term (current) use of aspirin; Z79.899 Other long term (current) drug therapy; Z91.041 Radiographic dye allergy status; Z91.048 Other nonmedicinal substance allergy status; Z20.822 Contact with and (suspected) exposure to COVID-19
CPT/HCPCS: 70450; 70551; 71045; 80048; 80061; 81001; 83735; 84443; 84484; 85025; 93005; 93306; 93880; 97139 ×3; 99285; U0003; U0005; 36415; 80053; 87635; G0378